=== PATIENT | male | born 1995 | race American Indian/Alaskan Native ===

== ENCOUNTER 2019-12-01 10:25 | Emergency (ER) | payer SELFPAY ==
[2019-12-01 10:35] VITALS: BP 129/78
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
== END 2019-12-01 11:11 | disposition left against medical advice (07) ==
LOC: ED 10:25
DX: N39.0 Urinary tract infection, site not specified (principal); Z53.21 Procedure and treatment not carried out due to patient leaving prior to being seen by health care provider